=== PATIENT | female | born 1990 | race American Indian/Alaskan Native ===

== ENCOUNTER 2018-09-09 09:38 | Emergency (ER) | payer MEDICAID, OTHER ==
[2018-09-09 09:50] VITALS: BP 142/75
[2018-09-09] MEDS ORDERED: LIDOCAINE 1.5%/EPI 1:200,000 INFILTRATI ONE (10:30)
[2018-09-09] MEDS ORDERED: NORCO 7.5/325 PO ONE (10:30)
[2018-09-09] MEDS ORDERED: IBUPROFEN PO ONE (10:30)
[2018-09-09] MEDS ORDERED: XYLOCAINE 1%/ EPI 1:100,000 INFILTRATI ONE (10:36)
--- NOTE | 2018-09-09 11:26 | Emergency Department Report ---
Abscess Boil HPI - HPI Chief Complaint: Dizziness Stated Complaint: LFT KNOT ARM PAIN/LIGHT HEADED Time Seen by Provider: 09/09/18 10:26 Duration: 4 Days Location: Upper Extremity (L axilla) Severity: Moderate History: Yes Pain, Yes Previous History (smaller that resolved spontaneously), No Fever, No Purulent Drainage, No Numbness, No Foreign Body Home Medications: Previous Rx's Medication Instructions Recorded Last Taken Type Clindamycin [Clindamycin CAP] 300 mg PO Q8H 10 Days cap 09/09/18 Unknown Rx HYDROcodone/APAP 5-325 [[place] 1 each PO Q6HR PRN #15 tablet 09/09/18 Unknown Rx 5/325] Ibuprofen [Motrin] 800 mg PO Q8HR PRN #20 tablet 09/09/18 Unknown Rx Allergies/Adverse Reactions: Allergies Allergy/AdvReac Type Severity Reaction Status Date / Time No Known Allergies Allergy Verified 09/09/18 09:48 ED Review of Systems ROS: Stated complaint: LFT KNOT ARM PAIN/LIGHT HEADED Other details as noted in HPI Comment: All other systems reviewed and negative ED Past Medical Hx - Past Medical History Previous Medical History?: No - Surgical History Additional Surgical History: C SECTION - Social History Smoking Status: Never Smoker Substance Use Type: None - Medications Home Medications: Home Medications Medication Instructions Recorded Confirmed Last Taken Type Clindamycin [Clindamycin CAP] 300 mg PO Q8H 10 Days cap 09/09/18 Unknown Rx HYDROcodone/APAP 5-325 [[place] 1 each PO Q6HR PRN #15 tablet 09/09/18 Unknown Rx 5/325] Ibuprofen [Motrin] 800 mg PO Q8HR PRN #20 tablet 09/09/18 Unknown Rx ED Abscess Boil Physical Exam - Exam General: Vital signs noted. No distress. Alert and acting appropriately. Size: 3 cm Exam: Yes Tenderness, Yes Fluctuance, Yes Surrounding Cellulites/Erythema, Yes Normal Neurologic Exam, Yes Normal Circulation, No Lymphangitis, No Crepitation, No Heart Murmur I & D Note - I & D Note I & D Note: His left axilla was prepped with Betadine. Area was numbed with 12 mL of lidocaine with epinephrine. 1/2 cm incision was made and large amounts of purulent material was drained. He was then used to break up loculations. Wound was packed with quarter-inch iodoform gauze. ED Course Vital Signs 09/09/18 09/09/18 09:48 10:37 Temperature 97.9 F Pulse Rate 72 Respiratory 18 22 Rate Blood Pressure 142/75 Critical care attestation.: If time is entered above; I have spent that time in minutes in the direct care of this critically ill patient, excluding procedure time. ED Disposition Clinical Impression: Abscess Disposition: DC-01 TO HOME OR SELFCARE Is pt being admited?: No Does the pt Need Aspirin: No Condition: Stable Instructions: Abscess (ED), Abscess Incision and Drainage (ED) Referrals: CHELE ELAINE [Other] - 2-3 Days (please see chele for wound recheck ) Time of Disposition: 11:26
== END 2018-09-09 12:01 | disposition home or self-care (01) ==
LOC: ED 09:38
DX: L02.412 Cutaneous abscess of left axilla (principal)

== ENCOUNTER 2020-02-09 17:49 | Emergency (ER) | payer OTHER ==
[2020-02-10] MEDS ORDERED: AZITHROMYCIN 250 MG TAB PO ONE (00:14)
[2020-02-10] MEDS ORDERED: LIDOCAINE-MPF (1%) 10 MG/1 ML VIAL 5 ML INFILTRATI ONE (00:14)
--- NOTE | 2020-02-10 00:14 | Emergency Department Report ---
ED Female HPI - General Chief complaint: Urogenital-Female Stated complaint: STD CHECK Time Seen by Provider: 02/10/20 00:06 Source: patient Mode of arrival: Ambulatory Limitations: No Limitations - History of Present Illness Initial comments: Patient is a 29-year-old -[place] female who presents for status post STD exposure. states her prior partner was positive for chlamydia and gonorrhea. She states some vaginal irritation for the past 2 days. There is no fever or chills. No vaginal discharge. No abdominal pain, nausea vomiting, ur inary frequency or urgency, no dysuria . MD Complaint: vaginal discharge, pelvic pain Onset/Timin -: days(s) Location: suprapubic Radiation: suprapubic Severity: moderate Severity scale (0 -10): 2 Quality: burning Consistency: intermittent Improves with: none Worsens with: none Are you Now?: No Last Menstrual Period: 01/28/20 EDC: 11/03/20 Associated Symptoms: denies: abdominal pain, nausea/vomiting, fever/chills, headaches, dysuria, hematuria, shortness of breath, weakness - Related Data Sexually active: Yes : 0 Para: 0 A: 0 Previous Rx's Medication Instructions Recorded Last Taken Type Clindamycin [Clindamycin CAP] 300 mg PO Q8H 10 Days cap 09/09/18 Unknown Rx HYDROcodone/APAP 5-325 [[place] 1 each PO Q6HR PRN #15 tablet 09/09/18 Unknown Rx 5/325] Ibuprofen [Motrin] 800 mg PO Q8HR PRN #20 tablet 09/09/18 Unknown Rx metroNIDAZOLE [Flagyl TAB] 500 mg PO BID 7 Days #14 tab 02/10/20 Unknown Rx Allergies Allergy/AdvReac Type Severity Reaction Status Date / Time No Known Allergies Allergy Verified 09/09/18 09:48 ED Review of Systems ROS: Stated complaint: STD CHECK Other details as noted in HPI Constitutional: denies: chills, fever Eyes: denies: eye pain, eye discharge, vision change ENT: denies: ear pain, throat pain Respiratory: denies: cough, shortness of breath, wheezing Cardiovascular: denies: chest pain, palpitations Endocrine: no symptoms reported Gastrointestinal: nausea. denies: abdominal pain, vomiting, diarrhea Genitourinary: denies: urgency, dysuria, discharge Musculoskeletal: denies: back pain, joint swelling, arthralgia Skin: denies: rash, lesions Neurological: denies: headache, weakness, paresthesias Psychiatric: denies: anxiety, depression Hematological/Lymphatic: denies: easy bleeding, easy bruising ED Past Medical Hx - Past Medical History Previous Medical History?: No - Surgical History Past Surgical History?: Yes Additional Surgical History: C SECTION - Social History Smoking Status: Never Smoker Substance Use Type: None - Medications Home Medications: Home Medications Medication Instructions Recorded Confirmed Last Taken Type Clindamycin [Clindamycin CAP] 300 mg PO Q8H 10 Days cap 09/09/18 Unknown Rx HYDROcodone/APAP 5-325 [[place] 1 each PO Q6HR PRN #15 tablet 09/09/18 Unknown Rx 5/325] Ibuprofen [Motrin] 800 mg PO Q8HR PRN #20 tablet 09/09/18 Unknown Rx metroNIDAZOLE [Flagyl TAB] 500 mg PO BID 7 Days #14 tab 02/10/20 Unknown Rx ED Physical Exam - General Limitations: No Limitations General appearance: alert, in no apparent distress - Head Head exam: Present: atraumatic, normocephalic - Eye Eye exam: Present: normal appearance - ENT ENT exam: Present: mucous membranes moist - Neck Neck exam: Present: normal inspection, full ROM. Absent: tenderness - Respiratory Respiratory exam: Present: normal lung sounds bilaterally. Absent: respiratory distress, wheezes, stridor, chest wall tenderness - Cardiovascular Cardiovascular Exam: Present: regular rate, normal rhythm, normal heart sounds. Absent: systolic murmur, diastolic murmur, rubs, gallop - GI/Abdominal GI/Abdominal exam: Present: soft, normal bowel sounds. Absent: distended, tenderness, guarding, rebound, rigid, mass, hernia - Rectal Rectal exam: Present: deferred - External exam: Present: erythema, other (exam deferred ) Speculum exam: Present: erythema Bi-manual exam: Present: normal bi-manual exam - Extremities Exam Extremities exam: Present: normal inspection, full ROM. Absent: tenderness, pedal edema, calf tenderness - Back Exam Back exam: Present: normal inspection, full ROM. Absent: tenderness, CVA tenderness (R), CVA tenderness (L), muscle spasm - Neurological Exam Neurological exam: Present: alert, oriented X3, CN II-XII intact, normal gait - Psychiatric Psychiatric exam: Present: normal affect, normal mood - Skin Skin exam: Present: warm, dry, intact, normal color. Absent: rash ED Course Vital Signs 02/09/20 18:06 Temperature 98.2 F Pulse Rate 107 H Respiratory 18 Rate Blood Pressure 166/108 O2 Sat by Pulse 98 Oximetry ED Medical Decision Making - Medical Decision Making STI exposure, tx'd for same, pt will follow up with health department in 2-3 days, pt verbalized agreement iand nad and understading of same. Critical care attestation.: If time is entered above; I have spent that time in minutes in the direct care of this critically ill patient, excluding procedure time. ED Disposition Clinical Impression: STD exposure Disposition: -01 TO HOME OR SELFCARE Is pt being admited?: No Does the pt Need Aspirin: No Condition: Stable Instructions: Sexually Transmitted Diseases (ED) Additional Instructions: folllow up with health departmen in 2-3 days for HIV and HSV screening, return to emergency if symptoms worsen. Prescriptions: metroNIDAZOLE [Flagyl TAB] 500 mg PO BID 7 Days #14 tab Referrals: IDALIA ARIAS MD [Staff Physician] - 3-5 Days Forms: Work/School Release Form(ED) Time of Disposition: 00:55
[2020-02-10 00:54] LABS: Bacteria,Urine 1+ /HPF (Negative); Bilirubin,Urine NEG (Negative); Blood,Urine NEG (Negative); Color,Urine Yellow (Yellow); Mucus,Urine 3+ /HPF; Protein,Urine <15 mg/dL mg/dL (Negative)
[2020-02-10 00:59] LABS: HCG Qualitative,Urine Negative (Negative)
[2020-02-10 02:45] VITALS: BP 140/83
== END 2020-02-10 01:20 | disposition home or self-care (01) ==
LOC: ED 17:49
DX: A63.8 Other specified predominantly sexually transmitted diseases (principal); Z98.890 Other specified postprocedural states; Z79.899 Other long term (current) drug therapy
CPT/HCPCS: 81001; 81025; 96372; 99284; J0696